=== PATIENT | female | born 1955 | race African-American/Black ===

== ENCOUNTER 2023-01-26 10:31 | Emergency (ER) | payer MEDICARE, MEDICAID ==
[~2023-01-26] VITALS: Ht 152.4 cm; Wt 46.0 kg
[2023-01-26 10:35] VITALS: BP 131/67; PULSE 108; RESP 18; TEMP 98.5; O2SAT 96
[2023-01-26] MEDS ORDERED: LIDOCAINE HCL/PF 1% 10 MG/ML 5ML VIAL INFIL ONE (11:00)
[2023-01-26] MEDS ORDERED: TETANUS, DIPHTHERIA, PERTUSSIS VAC/PF 0.5ML (>10YR OLD) IM ONE (11:00)
== END 2023-01-26 13:42 | disposition home or self-care (01) ==
LOC: ER 11:07
DX: S01.81XA Laceration without foreign body of other part of head, initial encounter (principal); W01.0XXA Fall on same level from slipping, tripping and stumbling without subsequent striking against object, initial encounter; Y93.89 Activity, other specified; Y92.89 Other specified places as the place of occurrence of the external cause; Y99.8 Other external cause status
CPT/HCPCS: 99285; 70450; 90715; 90471; J3490